=== PATIENT | male | born 1995 | race Caucasian/White ===

== ENCOUNTER 2021-10-27 20:10 | Emergency (ER) | payer OTHER ==
[2021-10-27 22:39] LABS: BASOPHIL 0.3 % (0-2); EOSINOPHIL 0 % (0-5); HCT 43.8 % (42.0-52.0); MCH 27.1 pg (25.0-31.0); MCV 84.7 fL (78.0-100.0); MONOCYTE 7.9 % (0-12); MPV 8.8 fL (6.0-9.5); NEUTROPHIL 68.2 % (41-80); NRBC 0; PLT 402 K/uL (150-400); RBC 5.17 M/uL (4.70-6.00); RDW 14.3 % (11.5-14.0); WBC 14.6 K/uL (4.0-10.5)
[2021-10-27 22:42] LABS: LYMPHOCYTE 21.8 % (15-48)
[2021-10-27 22:54] LABS: BUN/CREAT RATIO (CALC) 12.5 RATIO; CREATININE 0.96 mg/dL (0.67-1.17); POTASSIUM 3.7 mmol/L (3.5-5.1)
[2021-10-27 23:00] LABS: CLARITY CLEAR (CLEAR); COLOR YELLOW (YELLOW); SPECIFIC GRAVITY 1.025 (1.001-1.030)
[2021-10-27 23:01] LABS: BILIRUBIN NEGATIVE (NEGATIVE); GLUCOSE (U) NORMAL (NORMAL); PROTEIN NEGATIVE (NEGATIVE)
[2021-10-27 23:02] LABS: BLOOD TRACE-INTACT Ery/uL (NEGATIVE); LEUKOCYTES NEGATIVE Leu/uL (NEGATIVE); NITRITE NEGATIVE (NEGATIVE); UROBILINOGEN 0.2 mg/dL (0.2-1.0)
[2021-10-27 23:04] LABS: CALCIUM OXALATE CRYSTALS TRACE; MUCOUS TRACE
[2021-10-27 23:41] LABS: CORONAVIRUS 2019 SARS-COV-2 NEGATIVE (NEGATIVE); INFLUENZA A NAA NEGATIVE (NEGATIVE)
[2021-10-28] MEDS ORDERED: REGLAN10 MG PO (00:23)
[2021-10-28] MEDS ORDERED: NAPROXEN500 MG PO (00:23)
[2021-10-28] MEDS ORDERED: MEDROL 4MG DOSEP4 MG PO (00:24)
[2021-10-28] MEDS ORDERED: NORCO 5-325 TA1 EACH PO (00:24)
[2021-10-28] MEDS ORDERED: VIBRAMYCIN100 MG PO (00:25)
== END 2021-10-28 00:44 | disposition home or self-care (01) ==
LOC: FER 20:10
PROVIDERS: Nurse Practitioner Family
DX: A93.8 Other specified arthropod-borne viral fevers (principal); R51.9 Headache, unspecified; J45.909 Unspecified asthma, uncomplicated; Z20.822 Contact with and (suspected) exposure to COVID-19; Z28.310 Unvaccinated for COVID-19
CPT/HCPCS: 36415; 80048; 81001; 85025; J1100; J1170; J1885; J2405; J7030; U0002